=== PATIENT | male | born 1985 | race Native Hawaiian/Other Pacific Islander ===

== ENCOUNTER 2022-11-16 11:52 | Outpatient (CLI) | payer OTHER ==
[2022-11-16 12:17] LABS: PLATELET COUNT 280 K/uL (142-355)
[2022-11-16 12:38] LABS: POTASSIUM 4.1 mmol/L (3.6-5.2)
== END 2022-11-16 19:16 | disposition home or self-care (01) ==
LOC: LABW 11:52
PROVIDERS: ATTEND Internal Medicine Rheumatology
DX: M06.09 Rheumatoid arthritis without rheumatoid factor, multiple sites (principal); Z79.899 Other long term (current) drug therapy
CPT/HCPCS: 36415; 80053; 85027; 85652; 86140